=== PATIENT | female | born 1940 | race Caucasian/White ===

== ENCOUNTER → 2016-09-12 | Outpatient (CLI) | payer MEDICARE, OTHER ==
[~2016-09-12] MED LIST: BENADRYL25 MG PO; CILOSTAZOL50 MG PO; COLACE100 MG PO; CRESTOR5 MG PO; DILAUDID 2MG(HYD2 MG PO; GLUCOPHAGE500 MG PO; LAMISIL250 MG PO; METAMUCIL PACKE1 PKT PO; MILK OF MA400 MG/5 M PO; MIRALAX17 GM PO; NEURONTIN100 MG PO; NORCO 5-325 TA1 EACH PO; OCUVITE EYE +1 EACH PO; PRINIVIL OR ZES10 MG PO; THERA TEARS NU1 EACH PO; THERMACARE1 EACH PO; TYLENOL ARTHRI650 MG PO; TYLENOL PM EX-1 EACH PO; TYLENOL325 MG PO; VALIUM5 MG PO; VITAMIN B-6100 MG PO; VITAMIN D1000 UNIT PO; ZESTRIL40 MG PO; ZOCOR20 M1 PO; [UNRECOGNIZED DRUG - OTHER] PO
== END | disposition disaster alternative care site (69) ==
LOC: GOPD 09-11
PROC: 3E0R33Z Introduction of Anti-inflammatory into Spinal Canal, Percutaneous Approach (ICD-10-PCS; principal; 2016-09-12)
DX: M47.22 Other spondylosis with radiculopathy, cervical region (principal)
CPT/HCPCS: J1040

== ENCOUNTER 2016-11-21 11:50 | Inpatient (IN) | payer MEDICARE, OTHER ==
[~2016-11-21] VITALS: Ht 166.4 cm; Wt 103.6 kg
--- NOTE | ~2016-11-21 | OR ---
PATIENT'S NAME: Efren LEMOS [facility] AGE: 76 Y [address] ROOM: [address] [address] LOCATION: [facility] ADMIT DATE: 11/21/2016 OR/Procedure Report DISCHARGE DATE: FAMILY PHYSICIAN: Mathew Ryder MD ATTENDING PHYSICIAN: Vandana English SURGEON: Vandana Englsih MD MANAGING ATTORNEY: Minerva España. DATE OF PROCEDURE: 11/21/2016 PREOPERATIVE DIAGNOSIS: Cervical spondylosis with radiculopathy. POSTOPERATIVE DIAGNOSIS: Cervical spondylosis with radiculopathy. PROCEDURES PERFORMED: 1. Anterior cervical diskectomy with decompression of neural elements and foraminotomy at C4-5. 2. Anterior cervical diskectomy with decompression of neural elements and foraminotomy at C5-C6. 3. Anterior cervical diskectomy with decompression of neural elements and foraminotomy at C6-C7. 4. Use of structural and morselized allograft bone for fusion at C4-C5, C5- 6, and C6-C7. 5. Use of anterior plating system from C4-C6 by [employer]. 6. Use of intraoperative microscope. ANESTHESIA: General. ANESTHESIA PROVIDER: Ezequiel Toure CRNA. HISTORY: The patient has been complaining of arm pain, especially at the left arm. She has had shoulder surgery without improvement in her arm. The patient had cervical spine MRI which showed foraminal stenosis bilaterally at a number of levels including C4-5, C5-6, and C6-7. The patient's pain was becoming quite unbearable. Surgery was, therefore, recommended. The procedure described above along with the benefits, risks, and alternatives were reviewed with the patient and with her consent, she was brought to the operating room for surgery. PROCEDURE IN DETAIL: In the operating room, the patient was placed in a supine position. Anesthesia was induced, and she was intubated. Her neck was slightly extended, and a roll was placed under her shoulders, and the back of her head was placed in a gel donut. The incision line was marked out along the anterior border of the sternomastoid muscle. The whole area was prepped and draped in a sterile fashion. Local anesthesia was infiltrated. The #10 blade was used to open the incision and to incise the platysma. Dissection PATIENT'S NAME: CANELO, B CESAR [facility] AGE: 76 Y [address] ROOM: [facility] [place], [place] [address] LOCATION: [facility] ADMIT DATE: 11/21/2016 OR/Procedure Report DISCHARGE DATE: FAMILY PHYSICIAN: Mathew Ryder MD ATTENDING PHYSICIAN: Vandana English N was carried out along the anterior border of the sternomastoid muscle. The omohyoid muscle was visualized. Dissection was carried out between the omohyoid and sternomastoid muscles until the anterior surface of the spine was seen. The [employer] handheld retractors were used to help with the dissection. The longus colli muscles were dissected off the anterior surface of the spine. Black-belt retractors were inserted. X-ray was obtained to confirm our levels. The microscope was brought in. At this point and under microscopic vision, diskectomy and foraminotomy were carried out at C4-5, C5-6, and C6-C7. The diskectomy was done the same way for all the levels and will be described for one level as representing all the others. The #15 blade was used to incise the disk material, and the pituitary rongeur was used to pull out the same. The curette was used to scrape out more disk material which was again removed with a pituitary rongeur. This continued until the posterior longitudinal ligament was identified. The posterior longitudinal ligament was opened, and foraminotomy was carried out bilaterally. The adjacent edges of the disk space were then drilled down with the high-speed drill in preparation for fusion. Appropriate-sized pieces of bone grafts were then selected and filled with demineralized bone matrix and used to fill in the disk spaces. We had a very snug fit at all the levels. The disk space at C6-7 was already starting to fuse, and there was no distinct posterior longitudinal ligament at this level. Having completed the decompression and fusion, irrigation was used to wash out the debris, and anterior cervical plate was applied from C4-C6. Two screws each were attached to C4 and C5 and to C6. Another x-ray was obtained to confirm that the graft, screws, and plates were in satisfactory position. Irrigation was used to wash out the debris, and final hemostasis was achieved. The incision was closed in layers using appropriate suture materials. Sterile dressing was applied. The patient's anesthesia was reversed. She was extubated and taken to the recovery room to complete her recovery. I was present at and performed every aspect of this procedure, assisted at different stages by the operating room nurses. There were no apparent intraoperative complications. Swabs, needles, and instruments were all accounted for at the end of the case. Estimated blood loss was less than 100 mL, and there was no reason for blood transfusion. I expect the patient's left arm pain to improve after this procedure. VANDANA ENGLISH MD PATIENT'S NAME: Efren LEMOS [facility] AGE: 76 Y [address] ROOM: [place] [id number] LOCATION: [facility] ADMIT DATE: 11/21/2016 OR/Procedure Report DISCHARGE DATE: FAMILY PHYSICIAN: Mathew Ryder MD ATTENDING PHYSICIAN: Vandana English/normanl /[id number] d: 11/22/16256 t: 11/27/16 1644, OPERATIVE SUMMARY
== END 2016-11-22 21:00 | disposition disaster alternative care site (69) | DRG 473 ==
LOC: G3N 11:50 → GSDC 11:50 → GPOC 14:00 → G3N 21:07 → GSDC 21:08 → G3N 11-22 21:00
PROVIDERS: ADMIT Neurological Surgery
PROC: 0RG20A0 Fusion of 2 or more Cervical Vertebral Joints with Interbody Fusion Device, Anterior Approach, Anterior Column, Open Approach (ICD-10-PCS; principal; 2016-11-21)
DX: M47.812 Spondylosis without myelopathy or radiculopathy, cervical region (principal); E11.42 Type 2 diabetes mellitus with diabetic polyneuropathy; I10 Essential (primary) hypertension; E78.00 Pure hypercholesterolemia, unspecified; Z90.49 Acquired absence of other specified parts of digestive tract; Z90.710 Acquired absence of both cervix and uterus; Z96.651 Presence of right artificial knee joint; Z88.6 Allergy status to analgesic agent; Z88.0 Allergy status to penicillin
CPT/HCPCS: C1713; J0690; J2001; J3010; J3370; J7030; J7120

== ENCOUNTER → 2017-02-11 | Outpatient (CLI) | payer MEDICARE, OTHER | END | disposition disaster alternative care site (69) | LOC: GRAD 09:37 | DX: M47.22 Other spondylosis with radiculopathy, cervical region (principal); M25.512 Pain in left shoulder; R29.898 Other symptoms and signs involving the musculoskeletal system; Z98.1 Arthrodesis status ==